=== PATIENT | male | born 1995 | race African-American/Black ===

== ENCOUNTER 2019-05-18 17:44 | Emergency (ER) | payer SELFPAY ==
[2019-05-18] MEDS ORDERED: Fluorescein Opthalmic Strip ONE (18:30)
[2019-05-18] MEDS ORDERED: Tetracaine 0.5% OPHTH SOLN/PF 4 ML BOT ONE (18:31)
[2019-05-18] MEDS ORDERED: Sodium Chloride 0.9% 1,000 ML ONE (18:32)
== END 2019-05-18 19:04 | disposition home or self-care (01) ==
LOC: MADERS 17:44
DX: H57.89 Other specified disorders of eye and adnexa (principal); F17.210 Nicotine dependence, cigarettes, uncomplicated
CPT/HCPCS: 99283; J7050